=== PATIENT | male | born 2000 | race Caucasian/White ===

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

== ENCOUNTER → 2025-03-09 13:36 | Outpatient (BNVA) | payer OTHER, SELFPAY | PROVIDERS: PCP Nurse Practitioner Family; Visit Provider Nurse Practitioner Family | DX: I10 Essential (primary) hypertension (principal); Z78.9 Other specified health status; R53.83 Other fatigue | CPT/HCPCS: 80053; 80061; 84439; 84443; 85025 ==